=== PATIENT | female | born 1985 | race African-American/Black ===

== ENCOUNTER 2018-05-05 11:00 | Observation (INO) | payer MEDICAID | END 2018-05-05 13:15 | disposition home health service (06) | DRG 566 | LOC: LDRP 11:00 | PROVIDERS: ADMIT Specialist; ATTEND Specialist | DX: O26.892 Other specified pregnancy related conditions, second trimester (principal); R10.9 Unspecified abdominal pain; Z3A.25 25 weeks gestation of pregnancy | CPT/HCPCS: 59025; 76815; 81002; G0378 ==